=== PATIENT | female | born 1950 | race African-American/Black ===

== ENCOUNTER 2016-10-10 13:54 | Emergency (ER) | payer MEDICARE ==
[~2016-10-10] VITALS: Ht 149.9 cm; Wt 45.4 kg
[2016-10-10 14:13] VITALS: BP 105/65
--- NOTE | 2016-10-10 15:49 | RAD ---
INDICATION: pain for 1 month, fall 2 weeks ago COMPARISON: 12/25/2011 IMPRESSION: Lumbar spine: 3 views obtained. There is severe scoliotic curvature of the lumbar spine which limits evaluation. A definite severely increased compression fracture is not seen on this exam. Degenerative changes are identified throughout lumbar spine.
--- NOTE | 2016-10-10 15:53 | RAD ---
INDICATION: pain for 1 month, fall 2 weeks ago COMPARISON: None. IMPRESSION: 3 views left hip obtained without definite acute fracture or dislocation.
[2016-10-10] MEDS ORDERED: HYDR-971 PO (16:06)
--- NOTE | 2016-10-10 16:06 | PHYS DOC ---
Past Medical History Past Medical History: Other Additional Past Medical Histor: CHRONIC PAIN,SCOLIOSIS Past Surgical History: Other Additional Past Surgical Histo: LUMPECTOMY L BREAST,HERNIA Additional Information: nonsmoker Alcohol Use: None Drug Use: None Adult General Chief Complaint Chief Complaint: HIP PAIN [facility] HPI Patient is a 66 year old female with severe scoliosis and chronic pain who presents with left hip pain for 1 month. She states that the pain radiates down the left leg. She apparently fell approximately 2 weeks ago. Her leg gave out on her, causing her to fall. She denies any other injury with the fall. She has not sought medical attention since the fall. She has not seen her PCP since the increase in her chronic pain 1 month ago. She denies focal weakness or numbness , incontinence, saddle anesthesia, nausea, vomiting, abdominal pain, or urinary symptoms. Her PCP is Dr. Lyndsay Santizo. Review of Systems Review of Systems Constitutional: Denies fever or chills. [] GI: Denies abdominal pain, nausea, vomiting. [] : Denies dysuria, hematuria or urinary frequency. [] Musculoskeletal: Reports left hip and low back pain. Integument: Denies rash or skin lesions. [] Neurologic: Denies headache, focal weakness or sensory changes. Denies incontinence or saddle anesthesia. All systems reviewed and negative unless otherwise stated in the HPI. Allergies Allergies Allergies Coded Allergies Type Severity Reaction Last Updated Verified cephalexin Allergy Intermediate 10/10/16 Yes Uncoded Allergies Type Severity Reaction Last Updated Verified "SOME PURPLE PILL" A LONG TIME AGO Allergy Unknown 10/10/16 Physical Exam Physical Exam Constitutional: Well developed, well nourished, no acute distress, non-toxic appearance. [] HENT: Normocephalic, atraumatic, oropharynx moist. [] Eyes: PERRLA, EOMI, conjunctiva normal, no discharge. [] Neck: Normal range of motion, no tenderness, supple, no stridor. [] Cardiovascular: Heart rate regular rhythm, no murmur. [] Lungs & Thorax: Bilateral breath sounds clear to auscultation without wheezes, rales, or rhonchi. [] Abdomen: Bowel sounds normal, soft, no tenderness, no masses, no pulsatile masses. [] Skin: Warm, dry, no erythema, no rash. [] Back: Lumbar midline tenderness, no CVA tenderness. Left paraspinal Extremities: Left hip tenderness, ROM intact, no edema. 2+ DP pulses bilaterally. Sensation is intact and equal proximally and distally bilaterally. Neurologic: Alert and oriented X 3, normal motor function, normal sensory function, no focal deficits noted. [] Psychologic: Affect normal, judgement normal, mood normal. [] Current Patient Data Vital Signs Vital Signs Date Time Temp Pulse Resp B/P Pulse Ox O2 Delivery O2 Flow Rate FiO2 10/10/16 14:13 98.5 83 18 105/65 98 Room Air 98.5 EKG EKG [] Radiology/Procedures Radiology/Procedures REASON: pain for 1 month, fall 2 weeks ago PROCEDURE: HIP LEFT 2V WITH PELVIS INDICATION: pain for 1 month, fall 2 weeks ago COMPARISON: None. IMPRESSION: 3 views left hip obtained without definite acute fracture or dislocation. REASON: pain for 1 month, fall 2 weeks ago PROCEDURE: LUMBAR SPINE 2-3V INDICATION: pain for 1 month, fall 2 weeks ago COMPARISON: 12/25/2011 IMPRESSION: Lumbar spine: 3 views obtained. There is severe scoliotic curvature of the lumbar spine which limits evaluation. A definite severely increased compression fracture is not seen on this exam. Degenerative changes are identified throughout lumbar spine. Course & Med Decision Making Course & Med Decision Making Pertinent Labs and Imaging studies reviewed. (See chart for details) [] Dragon Disclaimer Dragon Disclaimer This electronic medical record was generated, in whole or in part, using a voice recognition dictation system. Departure Departure Impression: Primary Impression: Hip pain, left Additional Impression: Low back pain Disposition: 01 HOME, SELF-CARE Condition: STABLE Referrals: UNKNOWN PCP NAME (PCP) Patient Instructions: Back Pain, Adult, [id number], Hip Pain Additional Instructions: You were seen for hip and back pain. There were no broken bones or dislocations seen on your xrays. Please take the prescribed pain medication as directed. Do not drive or operate heavy machinery while taking pain medication. Please follow up with your primary care doctor for treatment of your chronic pain. Return to the emergency department if you have any new or concerning symptoms. Scripts Hydrocodone/Apap 5-325 ([place] 5-325 Tablet)1 Each Tablet1 Tab PO PRN Q6HRS PRN PAIN #20 TAB Prov:TRISTIN IQBAL 10/10/16 Problem Qualifiers Additional Impression: Low back pain Chronicity: chronic Back pain laterality: left Sciatica presence: with sciatica Sciatica laterality: sciatica of left side Qualified Code: M54.42 - Lumbago with sciatica, left side TRISTIN IQBAL Oct 10, 2016 16:06
== END 2016-10-10 16:38 | disposition home or self-care (01) ==
LOC: ER 13:54
DX: G89.29 Other chronic pain (principal); M25.552 Pain in left hip; M54.42 Lumbago with sciatica, left side; M41.9 Scoliosis, unspecified; Z88.1 Allergy status to other antibiotic agents; W19.XXXA Unspecified fall, initial encounter; Y93.89 Activity, other specified; Y92.89 Other specified places as the place of occurrence of the external cause; Y99.8 Other external cause status
CPT/HCPCS: 72100; 73502; 99284

== ENCOUNTER 2018-03-11 19:27 | Emergency (ER) | payer MEDICARE ==
[2018-03-11 20:41] LABS: ADD MAN DIFF? NO
[2018-03-11 20:49] LABS: BASO % 1 % (0-3); EOS # 0.1 x10^3/uL (0.0-0.7); EOS % 2 % (0-3); HEMATOCRIT 33.5 % (36.0-47.0); HEMOGLOBIN 10.9 g/dL (12.0-15.5); LYMPH # 1.5 x10^3/uL (1.0-4.8); LYMPH % 30 % (24-48); MEAN CORPUSCULAR HEMOGLOBIN 26 pg (25-35); MEAN CORPUSCULAR HGB CONC 32 g/dL (31-37); MEAN CORPUSCULAR VOLUME 81 fL (79-100); MONO # 0.6 x10^3/uL (0.0-1.1); MONO % 12 % (0-9); NEUT # 2.8 x10^3uL (1.8-7.7); NEUT % 56 % (31-73); PLATELET COUNT 231 x10^3/uL (140-400); RED BLOOD COUNT 4.16 x10^6/uL (3.50-5.40); RED CELL DISTRIBUTION WIDTH 17.6 % (11.5-14.5); WHITE BLOOD COUNT 4.9 x10^3/uL (4.0-11.0)
[2018-03-11 20:51] LABS: ANION GAP 6 (6-14); BLOOD UREA NITROGEN 22 mg/dL (7-20); BUN/CREATININE RATIO 24 (6-20); CALCIUM 9.2 mg/dL (8.5-10.1); CARBON DIOXIDE 28 mmol/L (21-32); CHLORIDE 105 mmol/L (98-107); CREATININE 0.9 mg/dL (0.6-1.0); GFR 75.8; GLUCOSE 84 mg/dL (70-99); POTASSIUM 3.9 mmol/L (3.5-5.1); SODIUM 139 mmol/L (136-145)
[2018-03-11 20:56] LABS: ALBUMIN 3.2 g/dL (3.4-5.0); ALBUMIN/GLOBULIN RATIO 0.8 (1.0-1.7); ALK PHOS 95 U/L (46-116); ALT (SGPT) 22 U/L (14-59); AST (SGOT) 27 U/L (15-37); TOTAL BILIRUBIN 0.2 mg/dL (0.2-1.0); TOTAL PROTEIN 7.3 g/dL (6.4-8.2)
[2018-03-11 21:02] LABS: NT-PRO BNP 44 pg/mL (0-124)
[2018-03-11 21:43] LABS: BILIRUBIN,URINE NEGATIVE (NEG); CLARITY,URINE CLEAR; COLOR,URINE YELLOW; GLUCOSE,URINE NEGATIVE (NEG); NITRITE,URINE NEGATIVE (NEG); PROTEIN,URINE NEGATIVE (NEG-TRACE); UROBILINOGEN,URINE 0.2 mg/dL (0.2 mg/dL)
[2018-03-11 21:51] LABS: BACTERIA,URINE 0 /HPF (0-FEW); SQUAMOUS EPITHELIAL CELL,UR OCC /LPF
== END 2018-03-11 22:56 | disposition home or self-care (01) ==
LOC: ER 19:27
DX: M62.838 Other muscle spasm (principal); G89.29 Other chronic pain; Z88.1 Allergy status to other antibiotic agents
CPT/HCPCS: 36415; 71046; 80053; 81001; 83880; 85025; 87086; 99285-25